=== PATIENT | male | born 1955 | race Caucasian/White ===

== ENCOUNTER 2023-12-27 10:35 | Outpatient (CLI) | payer MEDICARE ==
[~2023-12-27 10:35] MED LIST: Magnevist 469MG/ML 20 ML VIAL ONE
== END 2023-12-27 10:36 | disposition home or self-care (01) ==
LOC: MRI 10:35
PROVIDERS: ATTEND Specialist
DX: H90.3 Sensorineural hearing loss, bilateral (principal)
CPT/HCPCS: 70553; 76376

== ENCOUNTER 2024-04-02 13:27 | Outpatient (CLI) | payer MEDICARE | END 2024-04-02 13:28 | disposition home or self-care (01) | LOC: SCSMRI 13:27 | PROVIDERS: ATTEND Family Medicine | DX: H93.12 Tinnitus, left ear (principal); H91.92 Unspecified hearing loss, left ear; R03.0 Elevated blood-pressure reading, without diagnosis of hypertension; R42 Dizziness and giddiness | CPT/HCPCS: 70544; 70549 ==